=== PATIENT | female | born 1970 | race Caucasian/White ===

== ENCOUNTER 2021-07-11 19:53 | Emergency (ER) | payer OTHER, SELFPAY ==
--- NOTE | ~2021-07-11 | XR_ITS ---
XR lumbar spine 2-3V DATE: 07/12/2021 00:09 INDICATION: Low back pain radiating to right leg for 2 weeks TECHNIQUE: AP, lateral, coned lateral lumbosacral views COMPARISON: None FINDINGS: Normal alignment of the lumbar spine. No fracture or bone destruction or spondylolisthesis. The lumbar pedicles are intact. There is mild degenerative disc disease and spurring at the lumbar i nterspaces, sparing L5-S1. Normal sacroiliac joints. IMPRESSION: Mild degenerative disc disease at L1-2 through L4-5 Reviewed, dictated and finalized at location A.
[2021-07-11 19:56] VITALS: BP 123/83; PULSE 91; RESP 16; TEMP 36.2; O2SAT 100
[2021-07-11 23:37] VITALS: BP 133/92; PULSE 78; RESP 18; O2SAT 98
[2021-07-12] MEDS: diazePAM (*CRX) 5 MG TABLET PO (00:10)
[2021-07-12] MEDS: KETOROLAC (*BKC) 60 MG/2 ML VIAL IM (00:10)
--- NOTE | 2021-07-12 00:35 | PC.NURSE ---
pt unable to give urine sample at this time. pt states she will try after she has water.
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
[2021-07-12 01:20] VITALS: BP 112/87; PULSE 72; RESP 16; O2SAT 100
== END 2021-07-12 01:20 | disposition home or self-care (01) ==
PROVIDERS: Emergency Provider Emergency Medicine
DX: M54.31 Sciatica, right side (principal); F41.9 Anxiety disorder, unspecified; F32.9 Major depressive disorder, single episode, unspecified; M79.7 Fibromyalgia; F17.210 Nicotine dependence, cigarettes, uncomplicated
CPT/HCPCS: 72100; 96372; 99283; A9270; J1885

== ENCOUNTER 2021-12-12 17:45 | Emergency (ER) | payer OTHER, SELFPAY ==
[2021-12-12 17:48] VITALS: BP 130/93; PULSE 105; RESP 18; TEMP 35.9; O2SAT 99
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
[2021-12-12] MEDS: IBUPROFEN 400 MG TABLET 800 MG PO (19:25)
[2021-12-12] MEDS: ONDANSETRON HCL ODT 4 MG TABLET PO (19:25)
== END 2021-12-12 19:43 | disposition home or self-care (01) ==
PROVIDERS: Emergency Provider Emergency Medicine
DX: S00.83XA Contusion of other part of head, initial encounter (principal); S40.021A Contusion of right upper arm, initial encounter; J45.909 Unspecified asthma, uncomplicated; N80.9 Endometriosis, unspecified; M79.7 Fibromyalgia; F41.9 Anxiety disorder, unspecified; F32.A Depression, unspecified; F17.200 Nicotine dependence, unspecified, uncomplicated; Y35.813A Legal intervention involving manhandling, suspect injured, initial encounter
CPT/HCPCS: 99283; A9270

== ENCOUNTER 2022-02-21 06:38 | Emergency (ER) | payer OTHER, SELFPAY ==
--- NOTE | ~2022-02-21 | XR_ITS ---
EXAMINATION: XR knee LT 3V DATE: 02/21/2022 07:34 INDICATION: Left knee pain TECHNIQUE: Three views of the left knee were obtained. COMPARISON: None. FINDINGS: Alignment is normal. No fracture or osteochondral lesion. There is mild tricompartmental os teoarthritis characterized by tiny marginal osteophytes. There is a small joint effusion. Soft tissue s are unremarkable. IMPRESSION: 1. Small joint effusion without acute osseous abnormality. Reviewed, dictated and finalized at location A.
[2022-02-21 06:41] VITALS: BP 94/70; PULSE 98; RESP 18; TEMP 37; O2SAT 100
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
[2022-02-21] MEDS: KETOROLAC 30 MG/ML VIAL (*BKC) IM (07:59)
== END 2022-02-21 09:31 | disposition home or self-care (01) ==
PROVIDERS: Emergency Provider Emergency Medicine
DX: S83.92XA Sprain of unspecified site of left knee, initial encounter (principal); J45.909 Unspecified asthma, uncomplicated; N80.9 Endometriosis, unspecified; M79.7 Fibromyalgia; F32.A Depression, unspecified; F41.9 Anxiety disorder, unspecified; Z59.00 Homelessness unspecified; F17.200 Nicotine dependence, unspecified, uncomplicated; W01.0XXA Fall on same level from slipping, tripping and stumbling without subsequent striking against object, initial encounter
CPT/HCPCS: 73562; 96372; 99283; J1885

== ENCOUNTER 2022-11-09 08:32 | Emergency (ER) | payer OTHER, SELFPAY ==
[2022-11-09 08:59] VITALS: BP 108/83; PULSE 89; RESP 14; TEMP 36.8; O2SAT 99
[2022-11-09] MEDS: IBUPROFEN 600 MG TABLET PO (11:36)
--- NOTE | 2022-11-09 11:56 | ED.EXTPRO ---
HPI - Extremity Problem General Chief complaint: Extremity Problem,Nontraumatic Stated complaint: possible frostbite, homeless Time Seen by Provider: 11/09/22 11:21 History of Present Illness HPI Narrative: 51-year-old female here for evaluation of pain to her hands and feet for the past day. Patient is homeless and has had exposure to cold temperatures. Has been wearing shoes and mittens but does not believe they are working properly. States that the pain is like a burning and stinging. She attempted a Vicodin without relief. No numbness or tingling in her hands. No desquamation or swelling. No further injuries or complaints today. Related Data Home Medications Medication Instructions Recorded Confirmed alprazolam 1 mg tablet 1 mg PO TID PRN Anxiety 12/12/21 dextroamphetamine-amphetamine 20 20 mg PO BID 12/12/21 mg tablet (Adderall) oxycodone-acetaminophen 10 mg-325 12/12/21 mg tablet (Percocet) Allergies Allergy/AdvReac Type Severity Reaction Status Date / Time Penicillins Allergy Severe Anaphylactic Verified 11/09/22 11:19 Shock Review of Systems Review of Systems: Gen: Denies fevers or chills Eyes: Denies eye pain or visual change ENT: Denies congestion Respiratory: Denies shortness of breath or cough CV: Denies chest pain or palpitations GI: Denies abdominal pain nausea, emesis or diarrhea : denies burning, urgency, frequency or hematuria Musculoskeletal: Reports pain in her hands and feet. Neuro: Denies numbness, tingling, weakness or focal weakness Skin: Denies rash Except as documented, all other systems reviewed and negative PMFSH Past Medical History Medical History Anxiety Asthma Depression Endometriosis Fibromyalgia Surgical History Surgical History H/O inguinal hernia repair Social History Social History Smoking status: Current every day smoker Exam Narrative: APPEARANCE: Well appearing, no pain in distress, well-nourished. Head: Normocephalic and atraumatic. EYES: PERRLA/EOMI, conjunctivae clear NOSE: No nasal drainage EARS: External ear normal in appearance THROAT: Oropharynx is clear. Mucous membranes are moist. NECK: Supple. No adenopathy, no masses. RESPIRATORY: Airway patent, respirations nonlabored. Clear to auscultation bilaterally, no rales, rhonchi, wheezing. CARDIOVASCULAR: Regular rate and rhythm without murmurs, rubs, or gallops. ABDOMINAL: Normoactive bowel sounds. Soft, nontender, nondistended. No rebound tenderness or guarding. MUSCULOSKELETAL: Extremities are warm and well-perfused. Moves all extremities well. No edema. NEURO: Normal speech. No focal neurologic deficits. SKIN: Patient has no erythema to her hands or feet. There is no desquamation. No necrosis or hemorrhagic blisters noted. PSYCHIATRIC: Normal affect/mood. Course Vital Signs Vital signs: Vital Signs Temperature 98.2 F 11/09/22 08:59 Pulse Rate 89 11/09/22 08:59 Respiratory Rate 14 11/09/22 08:59 Blood Pressure 108/83 11/09/22 08:59 Pulse Oximetry 99 11/09/22 08:59 Temperature 98.2 F 11/09/22 08:59 Pulse Rate 89 11/09/22 08:59 Respiratory Rate 14 11/09/22 08:59 Blood Pressure 108/83 11/09/22 08:59 Pulse Oximetry 99 11/09/22 08:59 MDM - Extremity (Nontraumatic) MDM Narrative Medical decision making narrative: 51-year-old female here for evaluation of pain to his hands and feet over the past day after exposure to cold. Patient's exam is benign, she has very scant erythema to her right palm but she has no evidence of desquamation, hemorrhagic blisters, necrosis or more concerning signs of frostbite. Her extremities were placed in warm water bath and she tolerated this well without pain. She will be discharged with socks. Return precautions discussed and s
--- NOTE | 2022-11-09 12:29 | PC.NURSE ---
Case management spoke with pt to assist with homeless halfway options.
--- NOTE | 2022-11-09 13:01 | PCCCNOTE ---
Phone call received from bedside RN, Kristin for homeless resources. Patient in the ED with exposure, Met with patient and she states that he is living on the streets and came in because she was in a lot of pain. She does have a coat but does not have gloves or a hat. Called to [place] [id number], there is a warming mcc at the [facility] open until 8pm, she advised to call to [facility] Homeless line. Called to [facility] and left a message as the patient does not have a phone. Called to [place] [phone], they do not have any beds. Called to [facility], they only accept referrals through the [facility] line. Called to [facility] - no answer Left message. Provided resources and phone numbers to patient. Cab voucher with bedside RN to get patient to [facility]. Encouraged patient to use public phone to call resources. Patient provided with hat and extra socks to use as gloves. Patient also requested housing resources which were provided. Patient agreeable.
== END 2022-11-09 13:12 | disposition home or self-care (01) ==
PROVIDERS: Emergency Provider Physician Assistant
DX: T69.8XXA Other specified effects of reduced temperature, initial encounter (principal); M79.642 Pain in left hand; M79.641 Pain in right hand; M79.672 Pain in left foot; M79.671 Pain in right foot; Z59.00 Homelessness unspecified; F41.9 Anxiety disorder, unspecified; J45.909 Unspecified asthma, uncomplicated; F32.A Depression, unspecified; M79.7 Fibromyalgia; N80.9 Endometriosis, unspecified; F17.200 Nicotine dependence, unspecified, uncomplicated; X31.XXXA Exposure to excessive natural cold, initial encounter
CPT/HCPCS: 99282; A9270

== ENCOUNTER 2022-11-11 11:54 | Emergency (ER) | payer OTHER, SELFPAY ==
[2022-11-11 11:56] VITALS: BP 115/73; PULSE 98; RESP 20; TEMP 36.5; O2SAT 100
[2022-11-11 14:11] VITALS: BP 146/88; PULSE 90; RESP 20; O2SAT 99
--- NOTE | 2022-11-11 15:41 | ED.EXTPRO ---
HPI - Extremity Problem General Chief complaint: Extremity Problem,Nontraumatic Stated complaint: pain in hands Time Seen by Provider: 11/11/22 14:18 Source: patient and old records reviewed Mode of arrival: ambulatory Limitations: no limitations History of Present Illness HPI Narrative: Patient is a 51 y/o female who presents to the ED with c/o pain to bilateral hands. Patient is homeless. She reports having pain and mild tingling to bilateral hands from being out in the cold. She does not have mittens or gloves. She states she was diagnosed with frostbite 2 days ago. Per patient's records, she was seen here on 11/09 and there were no signs of frostbite at that time. Patient's discharge diagnosis was exposure to cold environment and she was given discharge information on frostbite. Patient denies any wounds, fever, nausea, vomiting, numbness. Related Data Home Medications Medication Instructions Recorded Confirmed alprazolam 1 mg tablet 1 mg PO TID PRN Anxiety 12/12/21 dextroamphetamine-amphetamine 20 20 mg PO BID 12/12/21 mg tablet (Adderall) oxycodone-acetaminophen 10 mg-325 12/12/21 mg tablet (Percocet) Allergies Allergy/AdvReac Type Severity Reaction Status Date / Time Penicillins Allergy Severe Anaphylactic Verified 11/11/22 14:13 Shock Review of Systems Review of Systems: CONSTITUTIONAL: Denies fever, chills, or sweats. CARDIOVASCULAR: Denies chest pain. RESPIRATORY: Denies dyspnea. GASTROINTESTINAL: Denies abdominal pain, nausea, vomiting, or diarrhea. MUSCULOSKELETAL: Reports pain to bilateral hands. SKIN: Denies wounds. NEUROLOGIC: Reports tingling to bilateral hands. Denies headache, numbness, or weakness. All systems reviewed & are unremarkable except as noted in HPI and below PMFSH Past Medical History Medical History Anxiety Asthma Depression Endometriosis Fibromyalgia Surgical History Surgical History H/O inguinal hernia repair Social History Social History Smoking status: Current every day smoker Exam Narrative: GENERAL: Mildly disheveled, well-nourished, non-toxic, in no acute distress. HEAD: Normocephalic, atraumatic. EYES: PERRLA/EOMI, conjunctiva clear. ENT: MMs slightly dry. NECK: Supple. No adenopathy, no masses. RESPIRATORY: Airway patent, respirations nonlabored. Clear to auscultation bilaterally, no rales, rhonchi, wheezing. CARDIOVASCULAR: Regular rate and rhythm without murmurs, rubs, or gallops. Radial pulses 2+ and equal bilaterally. MUSCULOSKELETAL: Moves all extremities. Strength/ROM intact without gross deformities. Minimal redness to fingers bilaterally. Skin dry but no signs of desquamation, cyanosis, blisters, necrosis or other color changes. Good capillary refill of fingers. SKIN: Warm, dry, normal color. No rashes. Dime-size scab just below left medial eyebrow. No active drainage or bleeding. NEURO: A&O X3. Speech clear. Cranial nerves II-XII grossly intact. Steady gait. No ataxic movements. PSYCHIATRIC: Slightly pressured speech. Normal interaction. Course Vital Signs Vital signs: Vital Signs Temperature 97.7 F 11/11/22 11:56 Pulse Rate 98 11/11/22 11:56 Respiratory Rate 20 11/11/22 11:56 Blood Pressure 115/73 11/11/22 11:56 Pulse Oximetry 100 11/11/22 11:56 Temperature 97.7 F 11/11/22 11:56 Pulse Rate 90 11/11/22 14:11 Respiratory Rate 20 11/11/22 14:11 Blood Pressure 146/88 H 11/11/22 14:11 Pulse Oximetry 99 11/11/22 14:11 MDM - Extremity (Nontraumatic) MDM Narrative Medical decision making narrative: Patient presented to ED with report of pain and tingling to bilateral hands, concern for frostbite as she is currently homeless. I discussed with patient that there were no signs of frostbite when she was seen here 2
--- NOTE | 2022-11-11 15:48 | PC.NURSE ---
Pt cussing and being verbally aggressive to staff and provider. This RN was in room w/ pt and discussed POC, pt cont. to be verbally abusive and aggressive, care coordination at bedside giving shoes and information for warming longterm including cab voucher. This RN sent from room and Enoc OVALLE obtained AMA form signature.
== END 2022-11-11 16:28 | disposition left against medical advice (07) ==
PROVIDERS: Emergency Provider Physician Assistant
DX: T69 Other effects of reduced temperature (principal); Z59.00 Homelessness unspecified; J45.909 Unspecified asthma, uncomplicated; F41.9 Anxiety disorder, unspecified; F32.A Depression, unspecified; N80.9 Endometriosis, unspecified; M79.7 Fibromyalgia; F17.200 Nicotine dependence, unspecified, uncomplicated; X31.XXXD Exposure to excessive natural cold, subsequent encounter
CPT/HCPCS: 99282

== ENCOUNTER 2024-03-04 10:19 | Emergency (ER) | payer OTHER, SELFPAY ==
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
[2024-03-04 10:21] VITALS: BP 128/114; PULSE 97; RESP 21; TEMP 36.6; O2SAT 98
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
[2024-03-04] MEDS: ACETAMINOPHEN 500 MG TABLET 1000 MG PO (11:02)
[2024-03-04 11:07] VITALS: BP 127/79; PULSE 78; RESP 16; O2SAT 98
[2024-03-04 11:29] LABS: Basophils Absolute Auto 0.1 K/mm3 (0.0-0.1); Basophils Percent Auto 0.8 % (0.2-1.2); Eosinophils Absolute Auto 0.1 K/mm3 (0-0.3); Eosinophils Percent Auto 0.5 % (0-4.4); Hematocrit 40.9 % (37.0-47.0); Immature Granulocyte Absolute 0.02 K/mm3 (0.00-0.031); Immature Granulocyte Percent A 0.2 % (0-0.5); Lymphocytes Absolute Auto 3.75 K/mm3 (0.9-3.2); Lymphocytes Percent Auto 35.5 % (18.3-44.2); Mean Corpuscular HGB Conc 31.8 g/dl (32-36); Mean Corpuscular Hemoglobin 30.7 pg (26-34); Mean Corpuscular Volume 96.5 fl (80-100); Mean Platelet Volume 8.5 fl (7.4-10.4); Monocytes Absolute Auto 0.5 K/mm3 (0.1-0.6); Monocytes Percent Auto 4.9 % (2.6-8.5); Neutrophils Absolute Auto 6.1 K/mm3 (1.3-6.7); Neutrophils Percent Auto 58.1 % (45.5-73.1); Platelet Count Result 397 k/mm3 (150-375); Red Blood Count 4.24 M/mm3 (4.2-5.4); Red Cell Distribution Width 12.4 % (11.5-14.5); White Blood Count 10.6 K/mm3 (4.5-10.0)
[2024-03-04 11:39] LABS: Alanine Aminotransferase 18 U/L (6-35); Albumin Level 4.8 g/dL (3.5-5.1); Alkaline Phosphatase 82 U/L (38-126); Anion Gap 11 mmol/L (4-12); Aspartate Amino Transferase 24 U/L (14-36); Bilirubin,Total 0.5 mg/dL (0.2-1.3); Blood Urea Nitrogen 25 mg/dL (7-17); Carbon Dioxide 22 mmol/L (22-30); Chloride 107 mmol/L (98-107); Estimated CRCL calculation 51 ml/min; Estimated Glomerular Filt Rate > 60; Glucose 110 mg/dL (65-110); Potassium 4.2 mmol/L (3.4-5.0); Sodium 140 mmol/L (137-145)
[2024-03-04 11:55] LABS: Appearance Urine Cloudy (Clear); Bacteria Urine 4+ /hpf; Bilirubin Urine Negative (Negative); Blood Urine 1+ (Negative); Color Urine Yellow (Yellow); Glucose Urine UA Negative (Negative); Hyaline Casts Urine Present /lpf; Ketones Urine Negative (Negative); Leukocyte Esterase Ur Negative LEU/UL (Negative); Nitrate Urine Negative (Negative); Protein Urine Negative (Negative); Specific Grav Ur 1.027 (1.001-1.035); Squamous Epithelial Cell Urine Occasional /hpf (Few); pH Urine 5.5 (5.0-9.0)
[2024-03-04 12:08] VITALS: BP 166/95; PULSE 86; RESP 14; O2SAT 99
[2024-03-04 12:08] LABS: Add Urine Microscopic? YES
[2024-03-04] MEDS: SULFAMETHOXAZOLE/TRIMETHOPRIM 800/160 MG DS TABLET 1 TAB PO (13:28)
[2024-03-04] MEDS: KETOROLAC 15 MG/ML VIAL (*BKC) IV PUSH (13:31)
[2024-03-04 13:50] VITALS: BP 134/76; PULSE 89; RESP 19; O2SAT 100
== END 2024-03-04 13:51 | disposition home or self-care (01) ==
PROVIDERS: Emergency Provider Student in an Organized Health Care Education/Training Program
DX: S60.222A Contusion of left hand, initial encounter (principal); M54.50 Low back pain, unspecified; G89.29 Other chronic pain; N30.01 Acute cystitis with hematuria; J45.909 Unspecified asthma, uncomplicated; M51.36 Other intervertebral disc degeneration, lumbar region; M79.7 Fibromyalgia; F43.10 Post-traumatic stress disorder, unspecified; F90.9 Attention-deficit hyperactivity disorder, unspecified type; N80.9 Endometriosis, unspecified; F17.200 Nicotine dependence, unspecified, uncomplicated; Y04.2XXA Assault by strike against or bumped into by another person, initial encounter; Y08.02XA Assault by strike by baseball bat, initial encounter; Y00.XXXA Assault by blunt object, initial encounter
CPT/HCPCS: 36415; 72132; 73130; 73502; 74177; 80053; 81001; 85025; 87077; 87086; 87088; 87186; 96374; 99284; A9270; J1885; Q9967

== ENCOUNTER 2024-06-27 14:02 | Emergency (ER) | payer OTHER, SELFPAY ==
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
[2024-06-27 14:03] VITALS: BP 117/90; PULSE 88; RESP 17; TEMP 37.2; O2SAT 97
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
== END 2024-06-27 15:52 | disposition home or self-care (01) ==
PROVIDERS: Emergency Provider Emergency Medicine
DX: S00.91XA Abrasion of unspecified part of head, initial encounter (principal); S91.311A Laceration without foreign body, right foot, initial encounter; F17.200 Nicotine dependence, unspecified, uncomplicated; Y09 Assault by unspecified means
CPT/HCPCS: 70450; 70486; 73630; 99284

== ENCOUNTER 2024-07-11 23:20 | Emergency (ER) | payer OTHER, SELFPAY ==
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
--- NOTE | ~2024-07-11 | XR_ITS ---
EXAMINATION: XR knee RT min 4V DATE: 07/12/2024 00:41 INDICATION: Right knee injury and pain. TECHNIQUE: 4 views of right knee were obtained. COMPARISON: None. FINDINGS: Bone alignment is normal. No fracture. Joint spaces are normal. No knee joint effusion. IMPRESSION: 1. Normal right knee. Reviewed, dictated and finalized at location A. IMPRESSION: 1. Normal right knee.
--- NOTE | ~2024-07-11 | XR_ITS ---
EXAMINATION: XR knee LT min 4V DATE: 07/12/2024 00:41 INDICATION: Left knee injury and pain. TECHNIQUE: 4 views of left knee were obtained. COMPARISON: Left knee radiographs 02/21/2022 FINDINGS: Bone alignment is normal. No fracture. There is mild tricompartmental osteoarthritis. No kn ee joint effusion. IMPRESSION: 1. Mild left knee osteoarthritis. Reviewed, dictated and finalized at location A.
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
[2024-07-11 23:21] VITALS: BP 119/74; PULSE 71; RESP 16; TEMP 37.1; O2SAT 98
[2024-07-11 23:30] VITALS: PULSE 74
[2024-07-11 23:35] VITALS: PULSE 68; RESP 18; O2SAT 100
--- NOTE | 2024-07-11 23:39 | PC.NURSE ---
pt log rolled with joelle kaye for back assessment. WNL
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
[2024-07-11 23:45] VITALS: BP 113/63; PULSE 67; PULSE 70; RESP 12; O2SAT 100
[2024-07-11 23:47] VITALS: BP 113/63; PULSE 73; RESP 12; O2SAT 100
[2024-07-12] VITALS (16 sets, daily range): BP systolic 113–149; BP diastolic 64–85; PULSE 57–97; RESP 10–20; TEMP 36.8; O2SAT 98–100
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
[2024-07-12 00:58] LABS: Basophils Absolute Auto 0.1 K/mm3 (0.0-0.1); Basophils Percent Auto 0.8 % (0.2-1.2); Eosinophils Absolute Auto 0.2 K/mm3 (0-0.3); Eosinophils Percent Auto 2.1 % (0-4.4); Hematocrit 39.5 % (37.0-47.0); Immature Granulocyte Absolute 0.02 K/mm3 (0.00-0.031); Immature Granulocyte Percent A 0.3 % (0-0.5); Lymphocytes Absolute Auto 3.28 K/mm3 (0.9-3.2); Lymphocytes Percent Auto 42.4 % (18.3-44.2); Mean Corpuscular HGB Conc 32.9 g/dl (32-36); Mean Corpuscular Hemoglobin 31.1 pg (26-34); Mean Corpuscular Volume 94.5 fl (80-100); Mean Platelet Volume 8.4 fl (7.4-10.4); Monocytes Absolute Auto 0.5 K/mm3 (0.1-0.6); Monocytes Percent Auto 6.3 % (2.6-8.5); Neutrophils Absolute Auto 3.7 K/mm3 (1.3-6.7); Neutrophils Percent Auto 48.1 % (45.5-73.1); Platelet Count Result 361 k/mm3 (150-375); Red Blood Count 4.18 M/mm3 (4.2-5.4); Red Cell Distribution Width 12.2 % (11.5-14.5); White Blood Count 7.7 K/mm3 (4.5-10.0)
[2024-07-12 01:08] LABS: Alanine Aminotransferase 13 U/L (6-35); Albumin Level 4.2 g/dL (3.5-5.1); Alkaline Phosphatase 72 U/L (38-126); Anion Gap 9 mmol/L (4-12); Aspartate Amino Transferase 21 U/L (14-36); Bilirubin,Total 0.2 mg/dL (0.2-1.3); Blood Urea Nitrogen 26 mg/dL (7-17); Calcium 9.1 mg/dL (8.4-10.2); Carbon Dioxide 23 mmol/L (22-30); Chloride 107 mmol/L (98-107); Estimated CRCL calculation 46 ml/min; Estimated Glomerular Filt Rate > 60; Glucose 109 mg/dL (65-110); Potassium 3.8 mmol/L (3.4-5.0); Sodium 139 mmol/L (137-145)
[2024-07-12 01:19] LABS: INR 0.9; Prothrombin Time 12.8 Seconds (11.1-14.7)
[2024-07-12 01:20] LABS: Partial Thromboplastin Time 30.7 Seconds (22.3-36.8)
[2024-07-12 01:56] LABS: SPREG INTERNAL CONTROL Positive; Serum Qual hCG Negative
[2024-07-12] MEDS: ACETAMINOPHEN 500 MG TABLET 1000 MG PO (03:20)
[2024-07-12 03:58] LABS: Barbiturate Screen Urine Negative (Negative); Benzodiazepines Screen Urine Positive (Negative)
[2024-07-12 04:00] LABS: Cannabinoid Screen Urine Positive (Negative); Cocaine Screen Urine Negative (Negative); Methadone Screen Urine Negative (Negative); Opiate Screen Urine Negative (Negative); Phencyclidine Screen Urine Negative (Negative)
[2024-07-12 04:43] LABS: Amphetamine Screen Urine Positive (Negative)
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
== END 2024-07-12 06:29 | disposition home or self-care (01) ==
PROVIDERS: Emergency Provider Physician Assistant
DX: S09.90XA Unspecified injury of head, initial encounter (principal); S80.212A Abrasion, left knee, initial encounter; S80.211A Abrasion, right knee, initial encounter; J45.909 Unspecified asthma, uncomplicated; N80.9 Endometriosis, unspecified; M79.7 Fibromyalgia; F17.200 Nicotine dependence, unspecified, uncomplicated; M17.12 Unilateral primary osteoarthritis, left knee; M47.812 Spondylosis without myelopathy or radiculopathy, cervical region; J43.9 Emphysema, unspecified; V03.90XA Pedestrian on foot injured in collision with car, pick-up truck or van, unspecified whether traffic or nontraffic accident, initial encounter
CPT/HCPCS: 36415; 70450; 71260; 72125; 73564; 74177; 80053; 80307; 84703; 85025; 85610; 85730; 99284; A9270; Q9967

== ENCOUNTER 2025-01-08 01:26 | Emergency (ER) | payer SELFPAY ==
[2025-01-08 01:27] VITALS: BP 132/86; PULSE 78; RESP 18; TEMP 36.4; O2SAT 99
--- OUTSIDE RECORDS SUMMARY | 2025-01-08 01:28 | XMS_ITS ---
Author Organization [facility] Address [address] [place] [address] Care Team Providers Care Teaching Young Name Role Phone Paige Pina Primary Care Provider [phone] Mariel Avitia Unavailable [phone] REASON FOR VISIT follow-up hospitalization Problems Problem Type SNOMED Code ICD Code Onset Dates Problem Status W/U Status Risk Notes Problem Depression (810586217) Depression (F32.9) Active confirmed Encounters Encounter Location Date Provider Diagnosis [address] [address] 08/17/2024 Mariel Avitia Depression F32.9 Assessments Encounter Date Diagnosis (ICD Code) Assessment Notes Treatment Notes Treatment Clinical Notes Section Notes 08/17/2024 Depression (ICD-10 - F32.9) Pt will continue medications as prescribed and will continue therapy to develop goals and manage symptoms. Plan Of Treatment Next Appt Details Follow Up: prn, Reason: Progress Notes * MATABenyFatoumataB:[birth year] (53 yo F)Acc No.[id number]:08/17/2024 Patient: Eileen ZAIDI Provider: Suzie Avitia LCSW :1970 A ge:53 Y S ex:Female Date:08/17/2024 Address:[address] [place], [place] Pcp:Paige Pina Subjective: * Chief Complaints: * F ollow-up hospitalization * HPI: D epression Screening: PHQ-2 In last 2 weeks have you been bothered by L ittle interest or pleasure in doing things?Yes PHQ-9 L ittle interest or pleasure in doing things?Several days F eeling down, depressed, or hopeless S everal days T rouble falling or staying asleep, or sleeping too much M ore than half the days F eeling tired or having little energy M ore than half the days P oor appetite or overeating S everal days F eeling bad about yourself or that you are a failure, or have let yourself or your family down S everal days T rouble concentrating on things, such as reading the newspaper or watching television N ot at all M oving or speaking so slowly that other people could have noticed; or the opposite, being so fidgety or restless that you have been moving around a lot more than usual N ot at all T houghts that you would be better off or of hurting yourself in some way N ot at all T otal Score 8 I nterpretation M ild Depression Clinician met with ct for session (utilizing precautions (telehealth)) - providing individual therapy. Utilized CBT approach: active listening, validation - along with facilitating feedback & introspection skills ct is working on. Acknowledged insights with patterns & interpersonal skills, re-framed, along with acknowledging growth (working on changes in behaviors/responses with factors in relationship & self). Ct reflected on patterns of thoughts/feelings, focusing on healthier changes she can adjust/made in responses to continue to focus on her growth (interpersonal, relationship, and self). Ct acknowledged areas that could help (engaging in treatment), barriers (some hesitation due to past experiences), and supported middle ground areas. C urrent Suicide Risk: Suicidal Ideation: . . Suicidal Plan: . . S creening: [place] Suicide Severity Rating Scale (LF) D o you want to initiate with S creener form 1 . Wish to be : Have you wished you were or wished you could go to sleep and not wake up? N o 2 . Suicidal Thoughts: Have you actually had any thoughts of killing yourself? N o 6 . Suicide Behaviour: Have you ever done anything,started to do anything, or prepared to end your life? N o I nterpretation: L ow Risk D epression Screening PHQ2 2015: PHQ-2 (2015 Edition) L ittle interest or pleasure in doing things??Several days F eeling down, depressed, or hopeless? S everal days T otal Score 2 * Medical History: * Medications: Objective: * Examination: P sychiatry: AFFECT: : , unable to assess - telephone appointment, verbally full. MOOD: : , apathetic. Assessment: * Assessment: 1. D epression - F32.9 Pt will continue medications as prescribed and will continue therapy to develop goals and manage symptoms. Plan: * Treatment: * Procedure Codes: 9 0832 TELE PSYTX PT&/FAMILY 30 MINUTES, Modifiers: AJ , GT * Follow Up: p rn * Care Plan Details* * Sign off status: Completed true * Provider: Suzie Avitia LCSW Date: 0 08/17/2024 Generated for Fabian guerin/Deloris/Sophia on: 0 01/08/2025 01:28 AM AUTOMOTIVE CONSULTANT History and Physical Notes * HPI (History of Present Illness) Category Sub-Category Detail Notes Category Not es Current Suicide Risk Suicidal Ideation: . Suicidal Plan: . Depression Screening PHQ9 PHQ-2 (2014 Edition) L ittle interest or pleasure in doing things?: Several days Feeling down, depressed, or hopeless?: S everal days Total Score: 2 Depression Screening PHQ-2 In last 2 weeks have you been bothered by Little interest or pleasure in doing things: Yes Clinician met with ct for session (utilizing precautions (telehealth)) - providing individual therapy. Utilized CBT approach: active listening, validation - along with facilitating feedback & introspection skills ct is working on. Acknowledged insights with patterns & interpersonal skills, re-framed, along with acknowledging growth (working on changes in behaviors/responses with factors in relationship & self). Ct reflected on patterns of thoughts/feelings, focusing on healthier changes she can adjust/made in responses to continue to focus on her growth (interpersonal, relationship, and self). Ct acknowledged areas that could help (engaging in treatment), barriers (some hesitation due to past experiences), and supported middle ground areas. PHQ-9 Little interest or pleasure in d oing things: Several days Feeling down, depressed, or hopeless: Se veral days Trouble falling or staying a sleep, or sleeping too much: More than half the days Feeling tired or having little energy: M ore than half the days Poor appetite or overeating: Several day s Feeling bad about yourself o r that you are a failure, or have let yourself or your family down: Several days Trouble concentrating on thi ngs, such as reading the newspaper or watching television: Not at all Moving or speaking so slowly that other people could have noticed; or the opposite, being so fidgety or restless that you have been moving around a lot more than usual: Not at all Thoughts that you would be b angelica off or of hurting yourself in some way: Not at all Total Score: 8 Interpretation: Mild Depression Screening [place] Suicide Sev erity Rating Scale (LF) Do you want to initiate with: Screener form 1. Wish to be : Have you wished you were or wished you could go to sleep and not wake up?: No 2. Suicidal Thoughts: Have you actually had any thoughts of killing yourself?: No 6. Suicide Behavior Question: Have you ever done anything,started to do anything, or prepared to end your life?: No Interpretation:: Low Risk Examination Category Sub-Category Detail Notes Category Not es Psychiatry AFFECT: :, unable to ass ess - telephone appointment, verbally full MOOD: :, apathetic
--- OUTSIDE RECORDS SUMMARY | 2025-01-08 01:28 | XMS_ITS | Patient Health Record ---
Author Organization [facility] Address [address] [place] [address] Care Team Providers Care Preprint Analyst Name Role Phone Paige Pina Primary Care Provider Carlos Costello Unavailable [phone] Mariel Avitia Unavailable [phone] Reason For Referral No Information Problems Problem Type SNOMED Code ICD Code Onset Dates Problem Status W/U Status Risk Notes Problem Depression (752433885) Depression (F32.9) Active confirmed Encounters Encounter Location Date Provider Diagnosis [address] [address] 08/17/2024 Mariel Avtiia Depression F32.9 Assessments Encounter Date Diagnosis (ICD Code) Assessment Notes Treatment Notes Treatment Clinical Notes Section Notes 08/17/2024 Depression (ICD-10 - F32.9) Pt will continue medications as prescribed and will continue therapy to develop goals and manage symptoms. Plan Of Treatment No Information Insurance Providers Payer Name Payer Address Payer Phone Subscriber Number Group Number Insured Name Patient Relationship to Insured Coverage Start Date Coverage End Date [facility] Attn Claims Department [address] [place] [address] [phone] [id number] Mata Benya Self - patient is the insured 3 [facility] [address] [place] [address] [phone] [id number] Mata Benya Self - patient is the insured 4
--- OUTSIDE RECORDS SUMMARY | 2025-01-08 01:28 | XMS_ITS | Continuity of Care Document ---
Author Organization [facility] Address [address] [place] [address] [address] [place] [address] Phone Care Team Providers Care Armored Cable Machine Operator Name Role Phone Bryce Hamlin OT Unavailable Unavailable Procedures Procedure Date PHYSICAL PERFORMANCE TEST Advance Directives Directive Yes / No Effective Date File Name No Information Encounters Encounter Description Practice Location Reason(s) For Visit Diagnoses Date Provider Providers Copied on Encounter [facility], [address] [place] [address], [id number], tel:[phone] [place] No Information Boubacar Wu. [address] [facility], [address], [place], [address], [place]. tel:[phone] Referring Provider: Ana Freeman [address], [place], [address]. tel:[phone] [facility], [address] [place] [address], [id number], tel:[phone] [place] Pain in joint involving hand Boubacar Wu. [address] [facility], [address], [place], [address], [place]. tel:[phone] Referring Provider: Ana Freeman [address], [place], [address]. tel:[phone] Family History Family Member Type Diagnosis Age At Onset No Information Payers Payer name Insurance type Covered republican ID Authoriza tion(s) No Information Social History [...]
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
--- OUTSIDE RECORDS SUMMARY | 2025-01-08 01:28 | XMS_ITS ---
Author Organization [facility] Address [address] [place] [address] Care Team Providers Care Electronics Processor Name Role Phone Paige Pina Primary Care Provider [phone] Carlos Costello Unavailable [phone] REASON FOR VISIT saw pt at [facility] Encounters Encounter Location Date Provider Diagnosis [address] [place] [address] 08/08/2024 Carlos Costello Plan Of Treatment No Information Progress Notes * Beny AUGUSTFatoumataB:[birth year] (54 yo F)Acc No.[id number]:08/08/2024 UNLOCKED PROGRESS NOTE Patient: Eileen ZAIDI Provider: César Costello :1970 A ge:53 Y S ex:Female Date:08/08/2024 Address:[address] [place], [place] [address] Pcp:Paige Pina Subjective: * Chief Complaints: * 1 . saw pt at [facility]. * Medical History: Objective: * Vitals: Assessment: Plan: * Treatment: * * Electronic signature of Carlos Costello MD, [id number] on 01/08/2025 at 01:28 AM DRAFTER ENGINEERING Sign off status: Pending * Provider: César Costello Date: 0 08/08/2024 Generated for Printi ng/Faxing/eTransmitting on: 0 01/08/2025 01:28 AM DRAFTER ENGINEERING
--- OUTSIDE RECORDS SUMMARY | 2025-01-08 01:29 | XMS_ITS ---
Author Organization [facility] Address [address] [place] [address] Care Team Providers Care Manager Rfid Name Role Phone Paige Pina Primary Care Provider Carlos Costello Unavailable [phone] REASON FOR VISIT NEW EVAL/ [facility] Encounters Encounter Location Date Provider Diagnosis [address] [place] [address] 07/25/2024 Carlos Costello Plan Of Treatment No Information Progress Notes * Beny AUGUSTaDOB:[birth year] (54 yo F)Acc No.[id number]:07/25/2024 UNLOCKED PROGRESS NOTE Patient: Eileen ZAIDI Provider: César Costello :1970 A ge:53 Y S ex:Female Date:07/25/2024 [address] Pcp:Paige Pina Subjective: * Chief Complaints: * 1 . NEW EVAL/ [facility]. * Medical History: Objective: * Vitals: Assessment: Plan: * Treatment: * * Electronic signature of Carlos Costello MD, [id number] on 01/08/2025 at 01:28 AM OIL EXPELLER Sign off status: Pending * Provider: César Costello Date: 0 07/25/2024 Generated for Montanai ng/Faxing/eTransmitting on: 0 01/08/2025 01:28 AM OIL EXPELLER
[2025-01-08 07:45] VITALS: BP 103/54; PULSE 84; RESP 18; TEMP 36.6; O2SAT 99
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
== END 2025-01-08 09:16 | disposition home or self-care (01) ==
PROVIDERS: Emergency Provider Emergency Medicine
DX: T69.9XXA Effect of reduced temperature, unspecified, initial encounter (principal); Z59.00 Homelessness unspecified; J45.909 Unspecified asthma, uncomplicated; N80.9 Endometriosis, unspecified; M79.7 Fibromyalgia; F32.A Depression, unspecified; F41.9 Anxiety disorder, unspecified; F17.200 Nicotine dependence, unspecified, uncomplicated; Z79.899 Other long term (current) drug therapy; X31.XXXA Exposure to excessive natural cold, initial encounter
CPT/HCPCS: 99281

== ENCOUNTER 2025-09-18 14:10 | Emergency (ER) | payer OTHER, SELFPAY ==
--- OUTSIDE RECORDS SUMMARY | 2015-01-29 19:00 | XMS_ITS | Continuity of Care Document ---
Author Organization [facility] Address [address] [place] [address] [address] [place] [address] Phone Care Team Providers Care Saddle Lining Stitcher Name Role Phone Bryce Hamlin OT Unavailable Unavailable Procedures Procedure Date PHYSICAL PERFORMANCE TEST Advance Directives Directive Yes / No Effective Date File Name No Information Encounters Encounter Description Practice Location Reason(s) For Visit Diagnoses Date Provider Providers Copied on Encounter [facility], [address] [place] [address], [id number], tel:[phone] [place] No Information Boubacar Wu. [address] [facility], [address], [place], [address], [place]. tel:[phone] Referring Provider: Ana Freeman [address], [place], [address]. tel:[phone] [facility], [address] [place] [address], [id number], tel:[phone] [place] Pain in joint involving hand Boubacar Wu. [address] [facility], [address], [place], [address], [place]. tel:[phone] Referring Provider: Ana Freeman [address], [place], [address]. tel:[phone] Family History Family Member Type Diagnosis Age At Onset No Information Payers Payer name Insurance type Covered libertarian ID Authoriza tion(s) No Information Social History Type Description Quantity Date Captured Comments Sex Female Smoking Status No Information Chief Complaint And Reason For Visit No Information Reason For Referral Reason For Referral No Information History Of Present Illness Encounter Date Complaint History Of Prese nt Illness No Information Functional Status Date Functional Assessmen t No Information Instructions Date Instruction Additional Infor mation No Information Assessments Type Assessment Date No Information Patient Care Teams Name Effective Dates (start - stop) Status Members No Information
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
--- OUTSIDE RECORDS SUMMARY | 2024-07-25 10:30 | XMS_ITS ---
Author Organization [facility] Address [address] [place] [address] Care Team Providers Care Manager Fire Name Role Phone Paige Pina Primary Care Provider Carlos Costello Unavailable [phone] REASON FOR VISIT NEW EVAL/ [facility] Encounters Encounter Location Date Provider Diagnosis [address] [place] [address] 07/25/2024 Carlos Costello Plan Of Treatment No Information Progress Notes * Beny AUGUSTaDOB:[birth year] (54 yo F)Acc No.[id number]:07/25/2024 UNLOCKED PROGRESS NOTE Patient: Eileen ZAIDI Provider: César Costello :1970 A ge:53 Y S ex:Female Date:07/25/2024 Address[address] Pcp:Paige Pina Subjective: * Chief Complaints: * 1 . NEW EVAL/ [facility]. * Medical History: Objective: * Vitals: Assessment: Plan: * Treatment: * * Electronic signature of Carlos Costello MD, [id number] on 09/18/2025 at 04:28 PM CDT Sign off status: Pending * Provider: César Costello Date: 0 07/25/2024 Generated for Montanai ng/Faxing/eTransmitting on: 1 04:28 PM CDT
--- OUTSIDE RECORDS SUMMARY | 2024-08-08 09:20 | XMS_ITS ---
Author Organization [facility] Address [address] [place] [address] Care Team Providers Care Impregnation Operator Name Role Phone Paige Pina Primary Care Provider [phone] Carlos Costello Unavailable [phone] REASON FOR VISIT saw pt at [facility] Encounters Encounter Location Date Provider Diagnosis [address] [place] [address] 08/08/2024 Carlos Costello Plan Of Treatment No Information Progress Notes * Beny AUGUSTFatoumataB:[birth year] (54 yo F)Acc No.[id number]:08/08/2024 UNLOCKED PROGRESS NOTE Patient: Eileen ZAIDI Provider: César Costello :1970 A ge:53 Y S ex:Female Date:08/08/2024 Address:[address] [place], [place] [address] Pcp:Paige Pina Subjective: * Chief Complaints: * 1 . saw pt at [facility]. * Medical History: Objective: * Vitals: Assessment: Plan: * Treatment: * * Electronic signature of Carlos Costello MD, [id number] on 09/18/2025 at 04:27 PM CDT Sign off status: Pending * Provider: César Costello Date: 0 08/08/2024 Generated for Printi ng/Faxing/eTransmitting on: 1 04:27 PM CDT
--- NOTE | ~2025-09-18 | XR_ITS ---
EXAMINATION: XR chest 2V, 09/18/2025 15:23 CDT HISTORY: cough COMPARISON: No comparisons available. Technique: 2 views obtained. Findings: The lungs are clear, no effusion. No pneumothorax. Heart is normal size. Mediastinal and hilar contours are within normal limits. Bony thorax no acute abnormality. Impression: No acute cardiopulmonary abnormality. Reviewed, dictated and finalized at location P. Impression: No acute cardiopulmonary abnormality.
--- NOTE | 2025-09-18 14:15 | PC.NURSE ---
HS at [facility] called again. No answer.
[2025-09-18 14:18] VITALS: BP 124/77; PULSE 98; RESP 18; TEMP 36.6; O2SAT 99
--- NOTE | 2025-09-18 14:54 | ECG_ITS ---
Test Date: 2025-09-18 15:41:47 Measurements Intervals [place] Rate: 75 P: 81 MO: 137 QRS: 78 QRSD: 92 T: 70 QT: 354 QTc: 396 Interpretive Statements SINUS RHYTHM BASELINE ARTIFACT- I, II, III, AVR, AVL, AVF, V2 NORMAL ECG No previous ECG available for comparison Electronically Signed On 09-18-2025 16:01:36 CDT by John Terrazas D.O.
--- NOTE | 2025-09-18 14:56 | ED_ITS ---
HPI - Skin/Abscess/Foreign Bdy General Chief complaint: Skin/Abscess/Foreign Body Stated complaint: spider bite Time Seen by Provider: 09/18/25 14:26 Source: patient Mode of arrival: ambulatory Limitations: no limitations History of Present Illness HPI narrative: This is a 54 year old female that presents to the ER with two complaints. Reporting an area of redness and swelling to the right forearm which she believes is a bug bite. Reports she first noticed this a week ago. Also reporting cold symptoms. Present over the last couple of days. Reports cough, congestion, headache, chest discomfort. Related Data Home Medications ?Medication ?Instructions ?Recorded ?Confirmed ?Last Taken ?Type alprazolam 1 mg tablet 1 mg PO TID PRN Anxiety 11/23 12/13 Unknown History dextroamphetamine-amphetamine 20 20 mg PO BID 12/12/21 Unknown History mg tablet (Adderall) oxycodone-acetaminophen 10 mg-325 12/12/21 Unknown H istory mg tablet (Percocet) albuterol 90 mcg/actuation aerosol mcg inhalation 06/23 Unknown History inhaler Allergies Allergy/AdvReac Type Severity Reaction Status Date / Time Penicillins Allergy Hives Verified 07/11/24 23:28 Review of Systems 2 Review of Systems: All systems reviewed & are unremarkable except as noted in HPI and below PMFSH Past Medical History Medical History Anxiety Asthma Depression Endometriosis Fibromyalgia Surgical History Surgical History H/O inguinal hernia repair Social History Social History Smoking status: Current every day smoker Exam 2 Narrative: GENERAL: Disheveled, well-nourished, and in no acute distress. HEAD: Normocephalic, atraumatic. EYES: EOMI. ENT: Nares clear, no rhinorrhea or epistaxis. Mucous membranes moist. Oropharynx without tonsillar hypertrophy exudate or other lesions. Bilateral TMs pearly sanchez non-bulging NECK: Supple. No adenopathy or masses. CHEST: Clear to auscultation. No respiratory distress. No wheezes rales or rhonchi HEART: Regular rate and rhythm. No murmur heard. Normal peripheral pulses. EXTREMITIES: Normal range of motion. No edema. Right forearm with small area (1.5cm) of redness and swelling, able to express fluctuance, draining spontaneously SKIN: Warm, dry, no rash. NEURO: No focal deficits. Alert and oriented x3. PSYCH: Normal mood and affect Course Vital Signs Vital signs: Vital Signs Temperature 97.8 F 09/18/25 14:18 Pulse Rate 98 09/18/25 14:18 Respiratory Rate 18 09/18/25 14:18 Blood Pressure 124/77 09/18/25 14:18 Pulse Oximetry 99 09/18/25 14:18 Oxygen Delivery Room Air 09/18/25 14:18 Temperature 98 F 09/18/25 17:08 Pulse Rate 85 09/18/25 17:08 Respiratory Rate 16 09/18/25 17:08 Blood Pressure 118/72 09/18/25 17:08 Pulse Oximetry 98 09/18/25 17:08 Oxygen Delivery Room Air 09/18/25 14:18 MDM - Skin/Abscess/Foreign Bdy MDM Narrative Medical decision making narrative: Patient presents to the emergency department for 2 complaints. Reporting cold symptoms. Also reporting an area of redness and swelling to the right forearm. She is afebrile and nontoxic appearing. Her vitals are stable. CBC with mild leukocytosis to 13. Metabolic panel with mild hypokalemia, potassium was replaced. EKG without acute ST changes, baseline troponin is negative. Chest x-ray without acute cardiopulmonary abnormality. Influenza, RSV and COVID screens are negative. Patient with small area of redness and swelling to the right forearm that is already actively draining. Sent for wound culture. Patient will be started on oral antibiotics. She was given warnings to return to the ER Differential Diagnosis Differential diagnosis: Likely abscess of skin or subcutaneous tissue, viral exanthem, cellulitis, insect bites, impetigo and other (Pneumonia, bronchitis, respiratory infection) Lab Data Attestation: I reviewed the patient's lab results. 09/18/25 15:23 09/18/25 15:22 Labs: Lab Results 09/18/25 09/18/25 Range/Units 15:22 15:23 WBC 13.0 H (4.5-10.0) K/mm3 RBC 4.12 L (4.2-5.4) M/mm3 Hgb 12.7 (12.0-15.0) g/dL Hct 39.3 (37.0-47.0) % MCV 95.4 (80-100) fl MCH 30.8 (26-34) pg MCHC 32.3 (32-36) g/dl RDW 12.6 (11.5-14.5) % Plt Count 326 (150-375) k/mm3 MPV 8.0 (7.4-10.4) fl Immature Gran % (Auto) 0.5 (0-0.5) % Neut % (Auto) 55.5 (45.5-73.1) % Lymph % (Auto) 37.1 (18.3-44.2) % [place] % (Auto) 5.7 (2.6-8.5) % Eos % (Auto) 0.7 (0-4.4) % Baso % (Auto) 0.5 (0.2-1.2) % Lymph # (Auto) 4.82 H (0.9-3.2) K/mm3 [place] # (Auto) 0.7 H (0.1-0.6) K/mm3 Eos # (Auto) 0.1 (0-0.3) K/mm3 Baso # (Auto) 0.1 (0.0-0.1) K/mm3 Abs Immat Gran (auto) 0.07 H (0.00-0.031) K/mm3 Absolute Neuts (auto) 7.2 H (1.3-6.7) K/mm3 Absolute Nucleated RBC 0.000 (0.0-0.012) K/mm3 Band Neutrophils % Not Reportable Nucleated RBC % 0.0 (0.0-0.2) % Platelet Estimate Adequate (Adequate) Ovalocytes Occasional Schistocytes None seen Sodium 141 (137-145) mmol/L Potassium 3.2 L (3.4-5.0) mmol/L Chloride 109 H (98-107) mmol/L Carbon Dioxide 26 (22-30) mmol/L Anion Gap 6 (4-12) mmol/L BUN 24 H (7-17) mg/dL Creatinine 0.68 L (0.7-1.0) mg/dL Estim Creat Clear Calc 58 ml/min Estimated GFR > 60 (59 - ) Glucose 77 (65-110) mg/dL Calcium 8.8 (8.4-10.2) mg/dL Magnesium 1.9 (1.6-2.3) mg/dL Troponin I < 0.012 (0.000-0.034) ng/mL Influenza A (RT-PCR) Negative (Negative) Influenza B (RT-PCR) Negative (Negative) RSV (RT-PCR) Negative (Negative) SARS-CoV-2 RNA (RT-PCR) Negative (Negative) Imaging Data Radiologist's impression: ITS Impressions Chest X-Ray 09/18/25 15:35 Impression: No acute cardiopulmonary abnormality. ECG Data EKG #1: ECG completion date: 09/18/25 EKG Interpretation: normal rate, sinus rhythm, no ST changes and normal QT Critical Care Time Critical Care Time Critical Care Time: No Discharge Plan Discharge Clinical Impression: Hypokalemia Cellulitis Qualifiers: Site of cellulitis: extremity Site of cellulitis of extremity: upper extremity Laterality: right Qualified Code(s): L03.113 - Cellulitis of right upper limb Upper respiratory infection Qualifiers: URI type: unspecified viral URI Qualified Code(s): J06.9 - Acute upper respiratory infection, unspecified Patient Disposition: Home Condition: Stable Instructions: Antibiotic Form, Cellulitis (ED), Hypokalemia (ED), Upper Respiratory Infection (ED) Additional Instructions: Return to the emergency department for worsening symptoms, or any other concerns Remain well-hydrated, get plenty of rest. Take Tylenol or Motrin [id number] for pain as needed. Flonase for nasal congestion. Zyrtec for runny nose. Apply antibiotic ointment as prescribed and take oral antibiotic as prescribed Follow up with primary care doctor Patient Language: Rwandan Prescriptions: New mupirocin [Centany] 2 % ointment 1 applic topical BID 7 Days Qty: 22 0RF doxycycline hyclate 100 mg tablet 100 mg PO BID 7 Days Qty: 14 0RF No Action sulfamethoxazole-trimethoprim [Bactrim DS] 800-160 mg tablet 1 tablet PO Q12H 5 Days Qty: 10 0RF alprazolam 1 mg Tablet 1 mg PO TID PRN (Reason: Anxiety) oxycodone-acetaminophen [Percocet] 10-325 mg Tablet dextroamphetamine-amphetamine [Adderall] 20 mg Tablet 20 mg PO BID naproxen [Naprosyn] 500 mg tablet 500 mg PO BID PRN (Reason: pain) Qty: 20 0RF ondansetron 4 mg tablet,disintegrating 4 mg PO Q8H PRN (Reason: nausea and vomiting) Qty: 20 0RF naproxen [Naprosyn] 500 mg tablet 500 mg PO BID PRN (Reason: pain) Qty: 14 0RF albuterol 90 mcg/actuation Aerosol INHALATION Follow-up/Referrals: Surinder Summers MD [Physician, Family Practice] UNKNOWN,DOCTOR [Primary Care Provider]
--- NOTE | 2025-09-18 15:20 | PC.NURSE ---
Pt. to x-ray.
[2025-09-18] MEDS: ACETAMINOPHEN 500 MG TABLET 1000 MG PO (15:29)
[2025-09-18 15:33] LABS: Hematocrit 39.3 % (37.0-47.0); Hemoglobin 12.7 g/dL (12.0-15.0); Immature Granulocyte Percent A 0.5 % (0-0.5); Lymphocytes Absolute Auto 4.82 K/mm3 (0.9-3.2); Mean Corpuscular HGB Conc 32.3 g/dl (32-36); Mean Corpuscular Hemoglobin 30.8 pg (26-34); Mean Corpuscular Volume 95.4 fl (80-100); Nucleated Red Blood Cells Absolute Auto 0.000 K/mm3 (0.0-0.012); Nucleated Red Blood Cells Perc 0.0 % (0.0-0.2); Platelet Count Result 326 k/mm3 (150-375); Red Blood Count 4.12 M/mm3 (4.2-5.4); White Blood Count 13.0 K/mm3 (4.5-10.0)
[2025-09-18 15:46] LABS: Anion Gap 6 mmol/L (4-12); Blood Urea Nitrogen 24 mg/dL (7-17); Calcium 8.8 mg/dL (8.4-10.2); Carbon Dioxide 26 mmol/L (22-30); Chloride 109 mmol/L (98-107); Estimated CRCL calculation 58 ml/min; Estimated Glomerular Filt Rate > 60; Glucose 77 mg/dL (65-110); Potassium 3.2 mmol/L (3.4-5.0); Sodium 141 mmol/L (137-145)
[2025-09-18 15:48] LABS: Ovalocytes Occasional; Schistocytes None Seen
[2025-09-18] MEDS: POTASSIUM CHLORIDE 20 MEQ ER TABLET 40 MEQ PO (15:51)
[2025-09-18 15:57] LABS: Troponin I < 0.012 ng/mL (0.000-0.034)
[2025-09-18 16:24] LABS: Magnesium 1.9 mg/dL (1.6-2.3)
--- OUTSIDE RECORDS SUMMARY | 2025-09-18 16:28 | XMS_ITS | Patient Health Record ---
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 [employer] Name Role Phone Paige Pina Primary Care Provider [phone] Reason For Referral No Information Problems Problem Type SNOMED Code ICD Code Onset Dates Problem Status W/U Status Risk Notes Problem Depression ([id number]) Depression (F32.9) Active confirmed Plan Of Treatment No Information Insurance Providers Payer Name Payer Address Payer Phone Subscriber Number Group Number Insured Name Patient Relationship to Insured Coverage Start Date Coverage End Date [facility] Attn Claims Department [address] [place] [address] [id number] Eileen August Self - patient is the insured 3 [facility] Claims Department [address] [place] [address] [id number] Eileen August Self - patient is the insured 4
[2025-09-18 16:37] LABS: Influenza A QL RT-PCR Negative (Negative); Influenza B QL RT-PCR Negative (Negative); RSV RNA, RT-PCR Negative (Negative); SARS-CoV-2 RNA PCR Negative (Negative)
[2025-09-18 17:08] VITALS: BP 118/72; PULSE 85; RESP 16; TEMP 36.6; O2SAT 98
== END 2025-09-18 17:11 | disposition home or self-care (01) ==
PROVIDERS: Emergency Provider Physician Assistant
DX: J06.9 Acute upper respiratory infection, unspecified (principal); L03.113 Cellulitis of right upper limb; E87.6 Hypokalemia; Z20.822 Contact with and (suspected) exposure to COVID-19; J45.909 Unspecified asthma, uncomplicated; N80.9 Endometriosis, unspecified; F41.9 Anxiety disorder, unspecified; F32.A Depression, unspecified; F17.200 Nicotine dependence, unspecified, uncomplicated
CPT/HCPCS: 36415; 71046; 80048; 83735; 84484; 85025; 87070; 87075; 87186; 87205; 87637; 93005; 99284; A9270